=== PATIENT | male | born 1965 | race Caucasian/White ===

== ENCOUNTER 2024-06-08 11:49 | Outpatient (OUT) | payer OTHER, SELFPAY ==
[2024-06-08 12:23] LABS: Bilirubin Urine NEGATIVE (NEGATIVE); Blood Urine NEGATIVE (NEGATIVE); Clarity Urine CLEAR (CLEAR); Color Urine LT. YELLOW (YELLOW); Glucose Urine UA NEGATIVE (NEGATIVE); Ketones Urine NEGATIVE (NEGATIVE); Leukocyte Esterase Urine NEGATIVE (NEGATIVE); Nitrite Urine NEGATIVE (NEGATIVE); Protein Urine NEGATIVE (NEG/TRACE)
[2024-06-08 12:25] LABS: Microalbumin Urine Random <1.3 mg/dL (<=30.0); Urine Microscopic Indicated NO
== END 2024-06-08 11:50 | disposition home or self-care (01) ==
LOC: LAB 11:49
PROVIDERS: PCP Nurse Practitioner; Visit Provider Nurse Practitioner
DX: I10 Essential (primary) hypertension (principal); Z12.5 Encounter for screening for malignant neoplasm of prostate; F41.9 Anxiety disorder, unspecified; F32.A Depression, unspecified; E78.2 Mixed hyperlipidemia
CPT/HCPCS: 81003; 82043; 82570